=== PATIENT | male | born 1970 | race Caucasian/White ===

== ENCOUNTER → 2016-04-25 | Outpatient (CLI) | payer BC ==
[~2016-04-25] MED LIST: LEVO25TA5 PO; NF1317 PO
--- NOTE | 2016-04-25 16:02 | DIAGNOSTIC IMAGING REPORT ---
LEFT SHOULDER MIN 2 VIEWS CLINICAL HISTORY: Left shoulder pain. COMPARISON: None FINDINGS: Alignment of the left glenohumeral joint is anatomic. There is slight elevation of the distal left clavicle with respect to the acromion. No acute fracture is identified. Subacromial space is preserved. IMPRESSION: 1. No acute fracture. 2. Slight elevation of the distal left clavicle with respect to the acromion suggestive of an age indeterminate mild AC joint separation. Electronically signed by: Hakan Pineda M.D. 04/25/2016 4:00 PM Dictated Date/Time: 04/25/2016 3:59 PM
== END | disposition home or self-care (01) ==
LOC: C.RDSM 14:27
PROVIDERS: ATTEND Physical Medicine & Rehabilitation Sports Medicine
DX: M25.512 Pain in left shoulder (principal)

== ENCOUNTER → 2017-03-03 | Outpatient (CLI) | payer BC ==
--- NOTE | 2017-03-03 13:49 | DIAGNOSTIC IMAGING REPORT ---
R SHOULDER MIN 2 VIEWS CLINICAL HISTORY: Right shoulder pain COMPARISON: None. DISCUSSION: No fractures or dislocations are visualized. There destructive changes are visualized. There are no visible periarticular calcifications. IMPRESSION: No acute fractures. No periarticular calcifications are visualized. Electronically signed by: Tristan Cruz M.D. 03/03/2017 1:48 PM Dictated Date/Time: 03/03/2017 1:46 PM
== END | disposition home or self-care (01) ==
LOC: C.RDSM 13:08
PROVIDERS: ATTEND Physician Assistant
DX: M25.511 Pain in right shoulder (principal)